=== PATIENT | female | born 1945 | race Caucasian/White ===

== ENCOUNTER 2021-04-13 17:24 | Inpatient (IN) | payer OTHER ==
[~2021-04-13] VITALS: Ht 154.9 cm; Wt 68.0 kg
--- NOTE | 2021-04-13 17:25 | NUR ---
BIBA taken to bed 9
[2021-04-13 17:27] VITALS: BP 188/100
--- NOTE | 2021-04-13 17:36 | NUR ---
Spoke with patients sister Yas cell# home#
[2021-04-13] MEDS ORDERED: ONDANSETRON 4 MG/2 ML VIAL IVP ONE ×2 (18:00→19:30)
--- NOTE | 2021-04-13 18:03 | NUR ---
76/f biba with c/o high blood pressure and nausea. Per EMS patient states she has been drinking scotch for two days and has not been compliant with her medications. Stated today blood pressure was elevated and patient began having tremors. Patient states she has nausea, denies vomiting or diarrhea. Denies headache, chest pain, sob, blurred vision. Patient is alert and oriented x4, answering questions appropriately. Patient placed in gown on bedside belt molder, blood pressure 188/100 and pulse 114 upon arrival to ED.
[2021-04-13] MEDS ORDERED: MORPHINE SULFATE 4 MG/ML SYR IVP ONE ×2 (18:35→20:55)
[2021-04-13] MEDS ORDERED: FAMOTIDINE 20 MG/2 ML VIAL IVP ONE (18:35)
[2021-04-13 18:37] LABS: BASOPHILS # (AUTO) 0.1 K/uL (0.00-0.22); BASOPHILS % (AUTO) 0.8 % (0.0-2.0); EOSINOPHILS % (AUTO) 0.1 % (0.0-4.0); HEMATOCRIT 35.4 % (36-48); HEMOGLOBIN 11.8 g/dL (12.0-16.0); LYMPHOCYTES % (AUTO) 14.2 % (20.5-51.1); MEAN CORPUSCULAR HEMOGLOBIN 29 pg (27-31); MEAN CORPUSCULAR HGB CONC 33 g/dL (33-37); MEAN CORPUSCULAR VOLUME 87.8 fL (80-94); MONOCYTES # (AUTO) 0.5 K/uL (0.8-1.0); MONOCYTES % (AUTO) 6.9 % (1.7-9.3); NEUTROPHILS # (AUTO) 5.2 K/uL (1.8-7.7); PLATELET COUNT (AUTO) 258 K/uL (140-450); RED BLOOD CELL COUNT(AUTO) 4.03 MIL/uL (4.20-5.40); RED CELL DISTRIBUTION WIDTH 16.4 % (11.6-13.7); WHITE BLOOD COUNT (AUTO) 6.7 K/uL (4.8-10.8)
[2021-04-13 18:54] LABS: PROTHROMBIN TIME 10.8 secs (10.8-13.4)
[2021-04-13 18:56] LABS: ALBUMIN 3.6 g/dL (3.4-5.0); ANION GAP 16.6 (8-16); ASPARTATE AMINOTRANSFERASE 45 U/L (15-37); CARBON DIOXIDE 23.2 mmol/L (21-32); CHLORIDE 102 mmol/L (98-107); CREATININE 0.7 mg/dL (0.6-1.3); GLUCOSE 103 mg/dL (74-106); POTASSIUM 3.8 mmol/L (3.5-5.1); SODIUM SERUM 138 mmol/L (136-145); TOTAL BILIRUBIN 0.7 mg/dL (0.0-1.0); UREA NITROGEN, BLOOD 13 mg/dL (7-18)
--- NOTE | 2021-04-13 19:14 | NUR ---
Pt report given to Georgina FORMAN. Transfer of care at this time.
--- NOTE | 2021-04-13 19:14 | NUR ---
REPORT RECEIVED FROM DICKSON KENNEYD FOR CONTINUITY OF CARE.
--- NOTE | 2021-04-13 19:20 | NUR ---
WITH PERMISSION FROM PATIENT, SPOKE WITH PTS SISTER EMILY AT BEDSIDE. UPDATED REGARDING PT STATUS.
[2021-04-13] MEDS ORDERED: NACL 0.9% 1,000 ML IV ONE (19:30)
--- NOTE | 2021-04-13 19:40 | NUR ---
IV TO LEFT FORARM NOTED TO BE INFILTRATED DURING ASSESSMENT. IV DC'D.
--- NOTE | 2021-04-13 20:03 | NUR ---
PT CALLING MULTIPLE TIMES CHAIR LIGHT, EXPRESSING "I'M JUST SO SCARED. I WANT TO FEEL BETTER." PT REASSURED, ON KETTLE WORKER, CALL LIGHT WITHIN REACH, WARM BLANKET PROVIDED, LIGHTS DIMMED. PT VERBALIZED UNDERSTANDING.
--- NOTE | 2021-04-13 20:30 | NUR ---
PT PLACED ON BED EASTON. URINE OUTPUT APPROX. 250 CC CLEAR, STRAW URINE.
--- NOTE | 2021-04-13 21:26 | NUR ---
LAB AT BEDSIDE.
--- NOTE | 2021-04-13 21:58 | NUR ---
PT NOTED TO HAVE SOILED BED WITH URINE. PERINEAL CARE PERFORMED. LINENS CHANGED. PT PROVIDED NEW GOWN AND WARM BLANKETS.
[2021-04-13 22:19] LABS: ANION GAP 17.9 (8-16); CARBON DIOXIDE 22.6 mmol/L (21-32); CHLORIDE 102 mmol/L (98-107); CREATININE 0.7 mg/dL (0.6-1.3); GLUCOSE 98 mg/dL (74-106); POTASSIUM 3.5 mmol/L (3.5-5.1); SODIUM SERUM 139 mmol/L (136-145); UREA NITROGEN, BLOOD 12 mg/dL (7-18)
--- NOTE | 2021-04-13 22:36 | NUR ---
PT SATURATED DIAPER. PERINEAL CARE PERFORMED. BLADDER SCANNER PERFORMED PER EDSON EARL, 230 CC RESIDUAL NOTED.
--- NOTE | 2021-04-13 23:39 | NUR ---
Dr. Martínez examining patient.
[2021-04-13] MEDS ORDERED: PROCHLORPERAZINE 10 MG/2 ML VIAL IVP ONE (23:55)
--- NOTE | 2021-04-14 00:50 | NUR ---
PERINEAL CARE PERFORMED. NEW DIAPER PLACED. PT TOLERATED WELL.
--- NOTE | 2021-04-14 01:00 | NUR ---
PT AMBULATED WITH 1 RN ASSIST AND WALKER. GAIT STEADY, HOWEVER PT COMPLAINS OF NAUSEA WHEN AMBULATING.
--- NOTE | 2021-04-14 01:45 | NUR ---
Patient appears to be resting comfortably in bed. Vital Signs within normal limits. Respirations even and unlabored.
--- NOTE | 2021-04-14 02:39 | NUR ---
PERINEAL CARE PERFORMED. PT REPOSITIONED FOR COMFORT. CALL LIGHT WITHIN REACH.
[2021-04-14] MEDS ORDERED: NACL 0.9% 1,000 ML IV SCH (02:50)
[2021-04-14] MEDS ORDERED: ONDANSETRON 4 MG/2 ML VIAL IVP PRN (02:50)
[2021-04-14] MEDS ORDERED: ONDANSETRON 4 MG/2 ML VIAL ONE (03:00)
--- NOTE | 2021-04-14 04:11 | NUR ---
PERINEAL CARE PERFORMED, PT REPOSITIONED FOR COMFORT.
--- NOTE | 2021-04-14 04:44 | NUR ---
Patient will be admitted to care of MD UNRULY. Admited to [facility]. Will go to room 112A. Belongings list completed. Report to DICKSON FRAZIER.
[2021-04-14 05:00] VITALS: BP 187/98
--- NOTE | 2021-04-14 05:05 | NUR ---
PT TAKEN TO [facility] 112A BY FILIPE CABRAL AND FILIPE APARICIO VIA W.C.
--- NOTE | 2021-04-14 05:15 | NUR ---
ADMITTED THE PATIENT FROM ER VIA WHEELCHAIR. PATIENT A/AOX3, CONFUSED AND FORGETFUL AT TIMES. NOTED PATIENT UNSTEADY ON HER FEET. DENIES ANY ABDOMINAL PAIN, JUST VERBALIZED THAT SHE IS NAUSEOUS BUT NO VOMITING NOTED. PATIENT WAS JUST GIVEN ZOFRAN NOT TOO LONG AGO FROM ER. PATIENT BP IS HIGH 187/98, HR-101, AFEBRILE, SATING 95% ON RA. NOTIFIED DR TOLLIVER OF THE PATIENT BP AND ALSO ASKED MD FOR ADMISSION ORDERS. AWAITING FOR MD TO REPLY OR CALL BACK. STARTED IVF ORDERED. ORIENTED THE PATIENT TO THE ROOM SETTING AND USE OF CALL LIGHT SYSTEM. FALL PRECAUTION IMPLEMENTED. INSTRUCTED NOT TO GET OUT OF BED WITHOUT ASSISTANCE. PATIENT VERBALIZED UNDERSTANDING. CALL LIGHT WITHIN REACH. WILL CONTINUE POC AND OBSERVATION.
--- NOTE | 2021-04-14 06:56 | NUR ---
PATIENT STABLE. NO ACUTE EVENT SINCE ADMISSION. PATIENT NOT IN ANY DISTRESS AND NO COMPLAIN AT THIS TIME. ALL NEEDS ATTENDED. WILL ENDORSE THE PATIENT TO THE ONCOMING RN FOR CONTINUITY OF CARE.
--- NOTE | 2021-04-14 07:00 | NUR ---
DR TOLLIVER AWARE OF THE PATIENT BLOOD PRESSURE AND NEW ORDER GIVEN AND AWAITING FOR PHARMACY TO VERIFY. BLOOD SUGAR EARLIER IS 99. NO COVERAGE GIVEN OR NEEDED.
--- NOTE | 2021-04-14 07:50 | NUR ---
ENDORSED PATIENT TO DICKSON DOZIER FOR CONTINUITY OF CARE. PATIENT STABLE. SIGNING OFF.
[2021-04-14 08:00] VITALS: BP 179/93
--- NOTE | 2021-04-14 08:00 | NUR ---
RECEIVED REPORT FROM KARIN, RN FOR CONTINUITY OF CARE. PATIENT ALERT AWAKE ORIENTED X4, NOT IN ANY DISTRESS NOTED. WITH IVF ON GOING AND INFUSING WELL. ASSESSMENT INITIATED. PATIENT COMPLAIN OF NAUSEA, WILL GIVE MEDICATION. NEEDS ATTENDED, WILL CONTINUE TO MONITOR.
[2021-04-14] MEDS ORDERED: POTASSIUM CHLORIDE 10 MEQ TABER PO PRN (08:15)
[2021-04-14] MEDS ORDERED: DEXT 5% /NACL 0.9% 1,000 ML IV SCH (08:15)
[2021-04-14] MEDS ORDERED: HYDROcodone/APAP 7.5/325 MG 1 TAB PO PRN (08:15)
[2021-04-14] MEDS ORDERED: DOCUSATE SODIUM 100 MG GELCAP PO PRN (08:15)
[2021-04-14] MEDS ORDERED: ONDANSETRON 4 MG/2 ML VIAL IM/IVP PRN (08:15)
[2021-04-14] MEDS ORDERED: ACETAMINOPHEN 325 MG TAB PO PRN (08:15)
[2021-04-14] MEDS ORDERED: guaiFENesin DM 200/20 MG-10 ML 10 ML UDC PO PRN (08:15)
[2021-04-14] MEDS ORDERED: ZOLPIDEM 5 MG TAB PO PRN (08:15)
--- NOTE | 2021-04-14 08:36 | NUR ---
PATIENT HAS BEEN SCREENED AND CATEGORIZED HIGH NUTRITION RISK. PATIENT WILL BE SEEN WITHIN 1-2 DAYS OF ADMISSION. 04/14/21-04/15/[address]
[2021-04-14] MEDS ORDERED: LORazepam 2 MG/ML VIAL IVP PRN (09:00)
[2021-04-14] MEDS ORDERED: PANTOPRAZOLE 40 MG TABEC PO SCH (09:00)
[2021-04-14] MEDS: PANTOPRAZOLE 40 MG INJ VIAL IVP SCH (09:11)
--- NOTE | 2021-04-14 09:15 | NUR ---
DUE MEDICATION GIVEN, NAUSEA MEDICATION GIVEN WELL. ASSISTED TO THE BATHROOM.
--- NOTE | 2021-04-14 09:20 | NUR ---
PATIENT WILL GO TO CT SCAN, [place] IV. WILL CONTINUE TO MONITOR.
[2021-04-14] MEDS ORDERED: INSULIN LISPRO SLIDING SCALE 100 UNITS/ML VIAL SUBQ PRN (09:25)
[2021-04-14 09:30] LABS: CHOL/HDL RATIO 3.1 (1-4.5); FREE T4 (FREE THYROXINE) 0.91 ng/dL (0.76-1.46); PHOSPHORUS 3.9 mg/dL (2.5-4.9); THYROID STIMULATING HORMONE 2.03 uIU/mL (0.34-3.74)
[2021-04-14 09:38] LABS: MAGNESIUM 1.2 mg/dL (1.8-2.4)
[2021-04-14] MEDS: FOLIC ACID 1 MG TAB PO SCH (10:49)
[2021-04-14] MEDS: CYANOCOBALAMIN 100 MCG TAB PO SCH (10:52)
[2021-04-14] MEDS: BLOOD GLUCOSE MONITORING 1 DEV DEV FS SCH ×3 (11:30→21:32)
[2021-04-14] MEDS: hydrALAZINE 20 MG/ML VIAL IVP PRN (12:42)
--- NOTE | 2021-04-14 12:48 | NUR ---
BP- 178/96, PULSE-98, MEDICATION HYDRALAZINE GIVEN ORDER. WILL CONTINUE TO MONITOR.
--- NOTE | 2021-04-14 14:04 | NUR ---
DC PLANN[age] YRS OLD FEMALE PATIENT WAS ADMITTED FROM HOME WITH A DX OF INTRACTABLE NAUSEA. PT HAS A HX OF HTN, DM, ALCOHOLISM. CXR SHOWED MINIMAL HAZY OPACITY IN THE RIGHT LOWER LUNG ZONE. CT ABD/PELVIS SHOWED NO BOWEL OBSTRUCTION. ADMINISTERED IVF, ZOFRAN AND PROTONIX AND CONTINUED HOME MEDS. CONSULTED WITH GI DR GONZALEZ. DC PLAN TO GO HOME WHEN STABLE. CM TO FOLLOW Addendum: 04/15/21 at 1532 by Myrna Patel RN DC PLANNING: STILL AWAITING FOR EGD TO BE DONE, RECEIVED A CALL FROM PT'S SISTER NAME YUDY STATED PT HAS BEEN IN ALCOHOL REHAB SEVERAL TIMES AND WENT BACK TO DRINK WITH FRIENDS. YUDY HAS THE DPOA AND REQUESTING FOR HER TO GO TO SNF. AWAITING FOR EGD PROCEDURE. CM TO FOLLOW
--- NOTE | 2021-04-14 14:33 | NUR ---
04/14/21 RD INITIAL ASSESSMENT COMPLETED PLEASE REFER TO NUTRITION ASSESSMENT UNDER CARE ACTIVITY FOR ESTIMATED NUTRITIONAL NEEDS. 1. CONTINUE NPO 2. ADVANCE DIET TO [facility] [address]GM 3. RD PROVIDED SOBRIETY NUTRITION EDUCATION 4. RD TO FOLLOW-UP 3-5 DAYS, MODERATE RISK GEORGINA BACA RD Addendum: 04/14/21 at [address] RECOMMENDATION FOR MVI ONCE DAILY APPROVED BY DR. TOLLIVER.
[2021-04-14] MEDS ORDERED: chlordiazePOXIDE 25 MG CAP PO SCH (15:00)
[2021-04-14] MEDS ORDERED: MAGNESIUM CITRATE 300 ML BTL PO SCH (15:00)
[2021-04-14] MEDS: SENNA 8.6 MG TAB PO SCH ×2 (15:11→18:38)
[2021-04-14] MEDS: POTASSIUM CHL 20MEQ/D5-NS 1,000 ML IV SCH (15:11)
[2021-04-14 16:00] VITALS: BP 147/86
[2021-04-14] MEDS ORDERED: cloNIDine-TTS1 0.1 MG/24 HR 1 EA PATCH TD SCH (16:00)
--- NOTE | 2021-04-14 16:00 | NUR ---
SEEN BY DR. GONZALEZ, WITH ORDER FOR EGD AND COLONOSCOPY.
[2021-04-14] MEDS: LACTULOSE 20 GM/30 ML UDC PO SCH ×2 (16:35→21:27)
[2021-04-14] MEDS: chlordiazePOXIDE 25 MG CAP PO SCH (16:36)
--- NOTE | 2021-04-14 17:00 | NUR ---
DUE MEDICATIONS GIVEN AND TOLERATED WELL. CONSENT SIGNED FOR EGD AND COLONOSCOPY TMW.
[2021-04-14] MEDS: METOCLOPRAMIDE 10 MG/2 ML INJ VIAL IVP SCH (18:35)
--- NOTE | 2021-04-14 19:20 | NUR ---
RECEIVED REPORT FROM DAYSHIFT NURSE, PT STABLE NO SIGNS OF DISTRESS, ON ROOM AIR
[2021-04-14 20:00] VITALS: BP 156/91
--- NOTE | 2021-04-14 21:00 | NUR ---
ALL SCHEDULED MEDS GIVEN. PT TOLERATED WELL, PT STABLE, NO SIGNS OF DISTRESS. SAFETY MEASURES IMPLEMENTED.
--- NOTE | 2021-04-15 | NUR ---
PT VOIDED 7X LOOSE STOOL
[2021-04-15] MEDS: METOCLOPRAMIDE 10 MG/2 ML INJ VIAL IVP SCH ×3 (00:21→13:49)
[2021-04-15] MEDS: POTASSIUM CHL 20MEQ/D5-NS 1,000 ML IV SCH ×2 (00:31→11:10)
--- NOTE | 2021-04-15 02:00 | NUR ---
ASSISTED PATIENT TO GO TO BED COMMODE. PT STABLE, NO SIGNS OF DISTRESS. SAFETY MEASURES IMPLEMENTED.
--- NOTE | 2021-04-15 02:47 | NUR ---
PATIENT WANTED TO DRINK WATER AND PATIENT MADE AWARE THAT SHE HAS A EGD & COLONOSCOPY PROCEDURE TOMORROW. PATIENT STATED THAT SHE NO LONGER WANTED TO DO THE PROCEDURE TOMORROW. MESSAGED DR GONZALEZ AND MADE AWARE OF THAT THE PATIENT REFUSED THE EGD/COLONOSCOPY FOR TOMORROW. AWAITING FOR MD TO CALL BACK.
--- NOTE | 2021-04-15 03:30 | NUR ---
PATIENT STILL DRINKING WATER AND STATED THAT SHE NO LONGER WANTER TO DO THE EGD AND COLONOSCOPY HERE. PATIENT STATED THAT SHE WILL WAIT UNTIL SHE GOES BACK TO [place] TO DO THE PROCEDURE.
[2021-04-15 06:07] LABS: T4 (THYROXINE) 5.9 ug/dL (4.5-12.0)
[2021-04-15] MEDS: BLOOD GLUCOSE MONITORING 1 DEV DEV FS SCH ×4 (06:08→21:01)
--- NOTE | 2021-04-15 06:36 | NUR ---
PATIENT STABLE. NO ACUTE EVENT THROUGHOUT THE NIGHT. PATIENT NOT IN ANY DISTRESS AND NO COMPLAIN AT THIS TIME. ALL NEEDS ATTENDED. WILL ENDORSE THE PATIENT TO THE ONCOMING RN FOR CONTINUITY OF CARE.
[2021-04-15 07:00] LABS: BASOPHILS % (AUTO) 0.4 % (0.0-2.0); EOSINOPHILS # (AUTO) 0.1 K/uL (0-0.4); EOSINOPHILS % (AUTO) 2.3 % (0.0-4.0); HEMATOCRIT 33.9 % (36-48); HEMOGLOBIN 11.3 g/dL (12.0-16.0); LYMPHOCYTES # (AUTO) 1.2 K/uL (2.5-16.5); LYMPHOCYTES % (AUTO) 20.3 % (20.5-51.1); MEAN CORPUSCULAR HEMOGLOBIN 30 pg (27-31); MEAN CORPUSCULAR HGB CONC 33 g/dL (33-37); MEAN CORPUSCULAR VOLUME 89.1 fL (80-94); MONOCYTES # (AUTO) 0.5 K/uL (0.8-1.0); MONOCYTES % (AUTO) 9.1 % (1.7-9.3); NEUTROPHILS # (AUTO) 4.1 K/uL (1.8-7.7); NEUTROPHILS % (AUTO) 67.9 % (42.2-75.2); PLATELET COUNT (AUTO) 210 K/uL (140-450)
[2021-04-15 07:01] LABS: ANION GAP 14.9 (8-16); CARBON DIOXIDE 21.1 mmol/L (21-32); CHLORIDE 104 mmol/L (98-107); CREATININE 0.8 mg/dL (0.6-1.3); GLUCOSE 140 mg/dL (74-106); SODIUM SERUM 137 mmol/L (136-145); UREA NITROGEN, BLOOD 10 mg/dL (7-18)
--- NOTE | 2021-04-15 07:24 | NUR ---
ENDORSED PATIENT TO DICKSON GUERRERO FOR CONTINUITY OF CARE. PATIENT STABLE. SIGNING OFF.
[2021-04-15 08:00] VITALS: BP 150/86
[2021-04-15] MEDS ORDERED: lisinopriL 10 MG TAB PO SCH (09:00)
--- NOTE | 2021-04-15 09:10 | NUR ---
Patient awake, alert and oriented, denies nausea and refused Colonoscopy, remains in bed with no further needs.
[2021-04-15] MEDS: chlordiazePOXIDE 25 MG CAP PO SCH ×3 (11:12→19:11)
[2021-04-15] MEDS: FOLIC ACID 1 MG TAB PO SCH (11:12)
[2021-04-15] MEDS: MULTIVITAMIN/MINERALS 1 TAB PO SCH (11:12)
[2021-04-15] MEDS: THIAMINE 100 MG TAB PO SCH (11:12)
[2021-04-15] MEDS: ASCORBIC ACID 500 MG TAB PO SCH (11:13)
[2021-04-15] MEDS: LACTULOSE 20 GM/30 ML UDC PO SCH ×2 (11:14→13:49)
[2021-04-15] MEDS: SENNA 8.6 MG TAB PO SCH ×2 (11:14→13:50)
[2021-04-15] MEDS: PANTOPRAZOLE 40 MG INJ VIAL IVP SCH (11:14)
[2021-04-15] MEDS: CYANOCOBALAMIN 100 MCG TAB PO SCH (11:17)
[2021-04-15] MEDS ORDERED: fentaNYL citrate 0.05 MG/ML VIAL ONE (15:03)
[2021-04-15] MEDS ORDERED: MIDAZOLAM 5 MG/5 ML VIAL ONE ×3 (15:03→15:52)
[2021-04-15] MEDS ORDERED: diphenhydrAMINE 50 MG/ML VIAL ONE (15:03)
[2021-04-15 16:00] VITALS: BP 149/86
[2021-04-15] MEDS ORDERED: MIDAZOLAM 2 MG/2 ML VIAL IVP ONE (16:05)
[2021-04-15] MEDS ORDERED: fentaNYL citrate 0.05 MG/ML VIAL IVP ONE (16:05)
[2021-04-15] MEDS ORDERED: diphenhydrAMINE 50 MG/ML VIAL IVP ONE (16:05)
[2021-04-15] MEDS: amLODIPine 5 MG TAB PO SCH (19:11)
--- NOTE | 2021-04-15 19:15 | NUR ---
RECEIVED PATIENT FROM AM NURSE FOR CONTINUITY OF CARE. PATIENT A/A/O X3. RESPIRATORY EVEN AND UNLABORED, NO SIGN OF DISTRESS NOTED. BOWEL SOUND ACTIVE TO 4 QUADRANTS. ABDOMEN SOFT, ROUND, NON TENDER, NON DISTENDED. SKIN WARM, DRY, NON DIAPHORETIC. IV ON RIGHT HAND 22G, INTACT AND PATENT, IS INFUSING D5NS WITH KCL 20MEQ ORDER. BEDSIDE COMMODE AT BEDSIDE. PATIENT DENIES ANY PAIN OR DISCOMFORT. DENIES ANY NAUSEA OR VOMITING. PLAN OF CARE DISCUSSED, PATIENT VERBALIZED UNDERSTANDING. PRECAUTION IN PLACE. CALL LIGHT WITHIN REACH. WILL CONTINUE TO MONITOR.
[2021-04-15 20:00] VITALS: BP 152/84
[2021-04-15] MEDS: POTASSIUM CHLORIDE 20% 40 MEQ/15 ML UDC GT SCH (21:01)
--- NOTE | 2021-04-15 21:01 | NUR ---
BLOOD SUGAR CHECK 91, NO INSULIN NEEDS. SCHEDULE MEDICATION GIVEN WITH EDUCATION. PATIENT VERBALIZED UNDERSTANDING. PATIENT TOLERATED WELL. PRECAUTION IN PLACE. CALL LIGHT WITHIN REACH. WILL CONTINUE TO MONITOR.
--- NOTE | 2021-04-16 | NUR ---
ROUND CHECK. PATIENT IS SLEEPING, CHEST RISE AND FALL. NO SIGN OF DISTRESS NOTED. PRECAUTION IN PLACE. CALL LIGHT WITHIN REACH. WILL CONTINUE TO MONITOR.
--- NOTE | 2021-04-16 02:00 | NUR ---
ASSIST PATIENT USING WALKER TO AMBULATE TO BATHROOM. PATIENT TOLERATED WELL. NO SIGN OF DISTRESS NOTED. PRECAUTION IN PLACE. CALL LIGHT WITHIN REACH. WILL CONTINUE TO MONITOR.
--- NOTE | 2021-04-16 04:00 | NUR ---
ROUND CHECK. PATIENT IS SLEEPING, CHEST RISE AND FALL, NO SIGN OF DISTRESS NOTED. PRECAUTION IN PLACE. CALL LIGHT WITHIN REACH. WILL CONTINUE TO MONITOR.
--- NOTE | 2021-04-16 06:18 | NUR ---
PATIENT IS RESTING IN BED, NO SIGN OF DISTRESS NOTED. PRECAUTION IN PLACE. WALKER AT BEDSIDE. CALL LIGHT WITHIN REACH. WILL CONTINUE TO MONITOR.
[2021-04-16] MEDS: hydrALAZINE 20 MG/ML VIAL IVP PRN (06:38)
[2021-04-16] MEDS: BLOOD GLUCOSE MONITORING 1 DEV DEV FS SCH ×4 (06:42→21:14)
--- NOTE | 2021-04-16 06:42 | NUR ---
BLOOD SUGAR CHECK 88. NO INSULIN NEED. PATIENT IS STABLE. NO SIGN OF DISTRESS NOTED. PRECAUTION IN PLACE. CALL LIGHT WITHIN REACH. WILL CONTINUE TO MONITOR.
--- NOTE | 2021-04-16 07:07 | NUR ---
ENDORSED PATIENT TO AM NURSE FOR CONTINUITY OF CARE. PATIENT IS STABLE.
[2021-04-16 08:00] VITALS: BP 127/70
[2021-04-16 08:47] LABS: BASOPHILS % (AUTO) 0.5 % (0.0-2.0); EOSINOPHILS # (AUTO) 0.3 K/uL (0-0.4); EOSINOPHILS % (AUTO) 5.9 % (0.0-4.0); HEMATOCRIT 30.7 % (36-48); HEMOGLOBIN 10.3 g/dL (12.0-16.0); LYMPHOCYTES # (AUTO) 1.1 K/uL (2.5-16.5); LYMPHOCYTES % (AUTO) 23.1 % (20.5-51.1); MEAN CORPUSCULAR HEMOGLOBIN 30 pg (27-31); MEAN CORPUSCULAR HGB CONC 33 g/dL (33-37); MEAN CORPUSCULAR VOLUME 89.2 fL (80-94); MONOCYTES # (AUTO) 0.4 K/uL (0.8-1.0); NEUTROPHILS % (AUTO) 62.5 % (42.2-75.2); PLATELET COUNT (AUTO) 159 K/uL (140-450); RED BLOOD CELL COUNT(AUTO) 3.44 MIL/uL (4.20-5.40); RED CELL DISTRIBUTION WIDTH 17.1 % (11.6-13.7); WHITE BLOOD COUNT (AUTO) 4.8 K/uL (4.8-10.8)
--- NOTE | 2021-04-16 08:58 | NUR ---
Patient awake, alert and oriented, able to verbalize needs. no complaints of pain and remains in bed with no further needs.
[2021-04-16 09:08] LABS: ANION GAP 11.7 (8-16); CARBON DIOXIDE 20.9 mmol/L (21-32); CHLORIDE 106 mmol/L (98-107); CREATININE 0.6 mg/dL (0.6-1.3); GLUCOSE 100 mg/dL (74-106); POTASSIUM 3.6 mmol/L (3.5-5.1); SODIUM SERUM 135 mmol/L (136-145); UREA NITROGEN, BLOOD 10 mg/dL (7-18)
[2021-04-16] MEDS: POTASSIUM CHLORIDE 20% 40 MEQ/15 ML UDC GT SCH ×2 (10:29→21:13)
[2021-04-16] MEDS: ASCORBIC ACID 500 MG TAB PO SCH (10:30)
[2021-04-16] MEDS: CYANOCOBALAMIN 100 MCG TAB PO SCH (10:31)
[2021-04-16] MEDS: lisinopriL 20 MG TAB PO SCH (10:31)
[2021-04-16] MEDS: amLODIPine 5 MG TAB PO SCH (10:32)
[2021-04-16] MEDS: FOLIC ACID 1 MG TAB PO SCH (10:33)
[2021-04-16] MEDS: chlordiazePOXIDE 25 MG CAP PO SCH ×2 (10:33→12:36)
[2021-04-16] MEDS: MULTIVITAMIN/MINERALS 1 TAB PO SCH (10:34)
[2021-04-16] MEDS: THIAMINE 100 MG TAB PO SCH (10:34)
[2021-04-16] MEDS ORDERED: THIA-34 PO (11:48)
[2021-04-16] MEDS ORDERED: AMLO-3 PO (11:48)
[2021-04-16] MEDS ORDERED: VITC500 PO (11:48)
[2021-04-16] MEDS ORDERED: APR20I IVP (11:48)
[2021-04-16] MEDS ORDERED: VITB12 PO (11:48)
[2021-04-16] MEDS ORDERED: FOLI1TAB90 PO (11:48)
[2021-04-16] MEDS ORDERED: LISI20TA29 PO (11:48)
[2021-04-16] MEDS ORDERED: LIB25 PO (11:48)
[2021-04-16] MEDS ORDERED: chlordiazePOXIDE 25 MG CAP PO SCH (13:00)
--- NOTE | 2021-04-16 15:00 | NUR ---
@1400 HRS: CONTACTED [facility], SPOKE WITH TRISTEN, STATED TO FAX OVER TO HER PT'S CLINICALS. FAX CONFIRMATION ATTACHED TO PT'S CHART. AWAITING FOR TRISTEN TO REVIEW PT'S CLINICAL INFO.
[2021-04-16 16:00] VITALS: BP 156/82
--- NOTE | 2021-04-16 17:53 | NUR ---
FOLLOWED UP TRISTEN'S PHONE # [phone] TO SEE IF THEY ACCEPTED PT AT [facility]. VOICEMAIL MESSAGE LEFT, AWAITING FOR CALL BACK.
--- NOTE | 2021-04-16 19:20 | NUR ---
FOLLOWED UP WITH TRISTEN, STATED THEY CAN NOT ACCEPT PT. SHE RAN OUT OF SNF DAYS BEFORE SHE WAS IN [place]. PER TRISTEN [facility] IS AWARE.
--- NOTE | 2021-04-16 19:25 | NUR ---
RECEIVED REPORT FROM AM NURSE. PATIENT ON BED RESTING. NO SOB NOTED. ALL SAFETY PRECAUTIONS IN PLACE. CALL LIGHT WITHIN REACH WILL CONTINUE TO MONITOR.
--- NOTE | 2021-04-16 22:05 | NUR ---
PATIENT WITH EPISODES OF CONFUSION, REDIRECTED.
--- NOTE | 2021-04-16 22:30 | NUR ---
NEEDS ATTENDED TO.
[2021-04-17] VITALS: BP 165/90
[2021-04-17] MEDS ORDERED: hydrALAZINE 10 MG TAB PO PRN (00:55)
[2021-04-17] MEDS: BLOOD GLUCOSE MONITORING 1 DEV DEV FS SCH ×2 (06:36→11:30)
--- NOTE | 2021-04-17 07:35 | NUR ---
ENDORSED TO AM RN FOR CONTINUITY OF CARE. PATIENT IS IN STABLE CONDITION.
--- NOTE | 2021-04-17 07:40 | NUR ---
CHANGE OF SCHEDULE. RECEIVED REPORT FROM DAY SHIFT RN
[2021-04-17 08:00] VITALS: BP 133/88
--- NOTE | 2021-04-17 08:50 | NUR ---
SPOKE TO SON N. HE STATES HE NEEDS TO TRAFFIC CONTROL OFFICER PATIENT TODAY OR PLEASE NOTIFY OF RELEASE.
--- NOTE | 2021-04-17 09:12 | NUR ---
[facility]URU (SISTER CALLED REGARDING PATIENT . THEY STATE THEY FOUND A REHAB CENTER FOR PATIENT IN [place]. AWARE AWAITING ORDERS.
[2021-04-17] MEDS: ASCORBIC ACID 500 MG TAB PO SCH (09:22)
[2021-04-17] MEDS: POTASSIUM CHLORIDE 20% 40 MEQ/15 ML UDC GT SCH (09:22)
[2021-04-17] MEDS: MULTIVITAMIN/MINERALS 1 TAB PO SCH (09:23)
[2021-04-17] MEDS: THIAMINE 100 MG TAB PO SCH (09:23)
[2021-04-17] MEDS: amLODIPine 5 MG TAB PO SCH (09:23)
[2021-04-17] MEDS: lisinopriL 20 MG TAB PO SCH (09:23)
[2021-04-17] MEDS: FOLIC ACID 1 MG TAB PO SCH (09:23)
[2021-04-17] MEDS: CYANOCOBALAMIN 100 MCG TAB PO SCH (09:24)
--- NOTE | 2021-04-17 09:33 | NUR ---
FAMILY CALLED REGARDING PATIENT DISCHARGE AWAITING ORDERS FROM MD. FAMILY IS AWARE.
--- NOTE | 2021-04-17 09:43 | NUR ---
[facility]URU CALLED REGARDING UPDATES. FAMILY UPDATED
--- NOTE | 2021-04-17 11:41 | NUR ---
FAMILY CALLED REGARDING PRESCRIPTIONS , AWARE THAT THEY WANT WRITTEN PRESCRIPTIONS
--- NOTE | 2021-04-17 12:07 | NUR ---
SON AT BEDSIDE. DISCHARGE INSTRUCTIONS COMPLETE . FAMILY VERBALIZED UNDERSTANDING OF CARE. PRESCRIPTIONS (WRITTEN GIVEN). PT VITALS WNL. PATIENT STABLE AND READY FOR DISCHARGE. ALL GATHERINGS GATHERED BY PATIENT AND SON . PT LEFT VIA WHEEL CHAIR
== END 2021-04-17 12:20 | disposition home or self-care (01) | DRG 392 ==
LOC: MED 17:24 → MMU 04-14 02:49 → MTU 04-14 04:34
PROVIDERS: ADMIT Family Medicine; ATTEND Family Medicine
PROC: 0DJ08ZZ Inspection of Upper Intestinal Tract, Via Natural or Artificial Opening Endoscopic (ICD-10-PCS; principal; 2021-04-15 16:00)
PROC: 0DJD8ZZ Inspection of Lower Intestinal Tract, Via Natural or Artificial Opening Endoscopic (ICD-10-PCS; 2021-04-15 16:00)
DX: K29.90 Gastroduodenitis, unspecified, without bleeding (principal); Q43.8 Other specified congenital malformations of intestine; F10.139 Alcohol abuse with withdrawal, unspecified; E87.1 Hypo-osmolality and hyponatremia; M84.48XA Pathological fracture, other site, initial encounter for fracture; D64.9 Anemia, unspecified; Z98.82 Breast implant status; Z20.822 Contact with and (suspected) exposure to COVID-19; I10 Essential (primary) hypertension; E78.00 Pure hypercholesterolemia, unspecified; E11.65 Type 2 diabetes mellitus with hyperglycemia; E87.6 Hypokalemia; E78.5 Hyperlipidemia, unspecified; N28.1 Cyst of kidney, acquired; Y90.9 Presence of alcohol in blood, level not specified
CPT/HCPCS: 36415; 71045; 76705; 80048; 80053; 82150; 82948; 83036; 83690; 83735; 83880; 84100; 84436; 84439; 84443; 84479; 84484; 85025; 85610; 85730; 87081; 93005; 96361; 96374; 96375; 96376; 99285; C9113; J0360; J0780; J1200; J1815; J2250; J2270; J2405; J2765; J3010; J3490; J7030